=== PATIENT | female | born 2000 | race Caucasian/White ===

== ENCOUNTER 2020-11-19 12:27 | Emergency (ER) | payer OTHER, SELFPAY ==
[2020-11-19 12:37] VITALS: BP 138/83; PULSE 77; RESP 12; TEMP 36.8; O2SAT 100
--- NOTE | 2020-11-19 12:56 | ED.SKABFB ---
HPI - Skin/Abscess/Foreign Bdy General Chief complaint: Skin/Abscess/Foreign Body Stated complaint: RASH Time Seen by Provider: 11/19/20 12:50 Source: patient and RN notes reviewed Mode of arrival: ambulatory Limitations: no limitations History of Present Illness HPI narrative: 20-year-old female presents concern for a slightly painful rash to the left genital/buttock area. Reports feeling a sensation of possible ingrown hair several days ago, she played a round of beach volleyball and said the friction made the area worse. She denies itching, reports slight pain. She denies any other rash area. She denies any known herpes infection, sexually transmitted disease. Denies any known exposure to STDs. She denies abnormal vaginal discharge. Reports she recently got an IUD which has caused her to have frequent yeast and bacterial vaginosis infections. She denies any current vaginal itching, foul odor. MD complaint: rash Related Data Home Medications Medication Instructions Recorded Confirmed budesonide-formoterol [Symbicort] 2 puff INHALATION BID 11/19/20 11/19/20 fexofenadine [Mercedes] 180 mg PO DAILY 11/19/20 11/19/20 fluticasone propionate [Flonase] 1 spray INTRANASAL DAILY 11/19/20 11/19/20 sertraline 100 mg PO DAILY 11/19/20 11/19/20 Allergies Allergy/AdvReac Type Severity Reaction Status Date / Time No Known Allergies Allergy Verified 11/19/20 12:38 Review of Systems Review of Systems: CONSTITUTIONAL: Denies malaise, chills, sweats, or fever. ENT: Denies oral lesions GENITOURINARY: Denies vaginal discharge, odor, abnormal bleeding, dysuria or hematuria. SKIN: Reports painful rash in the left buttock/vaginal area MUSCULOSKELETAL: Denies myalgia. All systems reviewed & are unremarkable except as noted in HPI and below PMFSH Comments At time of signature, agree with nursing past medical, surgical, social and family history. There is no relevant family history pertinent to the presenting complaint Exam Narrative: GENERAL: Well-appearing, well-nourished, and in no acute distress. HEAD: Normocephalic, atraumatic. EYES: PERRLA, conjunctivae clear, and EOMI. ENT: Mucous membranes moist. Oropharynx without edema, erythema or lesions. NECK: Supple. No lymphadenopathy CHEST: Clear to auscultation. No respiratory distress. HEART: Regular rate and rhythm. SKIN: Warm, dry. 2 cm in diameter herpetiform rash noted to the left lower buttock/labial area NEURO: Alert and oriented x3. PSYCH: Normal mood and affect Course Course Emergency Course: Discussed possible herpes infection with patient. Discussed sending viral culture and treating for presumptive herpes while waiting for the result. Patient is aware of diagnosis, understands and agrees to treatment plan. Anticipatory guidance given. Patient agrees to follow-up as directed and is aware of reasons to seek care at the emergency department. Portions of this record may have been created with voice recognition software Vital Signs Vital signs: Vital Signs Temperature 98.2 F 11/19/20 12:37 Pulse Rate 77 11/19/20 12:37 Respiratory Rate 12 11/19/20 12:37 Blood Pressure 138/83 11/19/20 12:37 Pulse Oximetry 100 11/19/20 12:37 Temperature 98.2 F 11/19/20 12:37 Pulse Rate 77 11/19/20 12:37 Respiratory Rate 12 11/19/20 12:37 Blood Pressure 138/83 11/19/20 12:37 Pulse Oximetry 100 11/19/20 12:37 Reviewed. MDM - Skin/Abscess/Foreign Bdy MDM Narrative Medical decision making narrative: Exam findings show no acute concerns or changes; patient is non-toxic appearing and is in no distress. Patient is appropriate for outpatient treatment and follow-up. Differential Diagnosis Differential diagnosis: Likely abscess of skin or subcutaneous tissue, cellulitis, eczema, impetigo, contact dermatitis and other (Viral rash) Critical Care Time Critical Care Time Critical Care Time: No Discharge Plan Discharge Clinical Impression: Lesion of ge
== END 2020-11-19 13:13 | disposition home or self-care (01) ==
PROVIDERS: Emergency Provider Nurse Practitioner
DX: L98.9 Disorder of the skin and subcutaneous tissue, unspecified (principal)
CPT/HCPCS: 87255; 99213; G0463

== ENCOUNTER 2021-02-03 12:24 | Emergency (ER) | payer OTHER, SELFPAY ==
[2021-02-03 12:33] VITALS: BP 130/72; PULSE 75; RESP 16; TEMP 36.9; O2SAT 99
--- NOTE | 2021-02-03 12:42 | ED.FEMALEGU ---
HPI - Female Genitourinary General Chief complaint: Urogenital-Female Stated complaint: uti symptoms Time Seen by Provider: 02/03/21 12:36 Source: patient and RN notes reviewed Mode of arrival: ambulatory Limitations: no limitations History of Present Illness HPI Narrative: 20-year-old female presents concern for urinary tract infection. She reports dysuria, urgency, frequency, lower back discomfort for 4 to 5 days. Reports history of urinary tract infections. She denies nausea, vomiting, abdominal pain, fever. Denies abnormal vaginal bleeding. MD elicited complaint: UTI Related Data Home Medications Medication Instructions Recorded Confirmed budesonide-formoterol [Symbicort] 2 puff INHALATION BID 11/19/20 02/03/21 fexofenadine [Mercedes] 180 mg PO DAILY 11/19/20 02/03/21 fluticasone propionate [Flonase] 1 spray INTRANASAL DAILY 11/19/20 02/03/21 sertraline 100 mg PO DAILY 11/19/20 02/03/21 Allergies Allergy/AdvReac Type Severity Reaction Status Date / Time No Known Allergies Allergy Verified 02/03/21 12:31 Review of Systems Review of Systems: CONSTITUTIONAL: Denies malaise, chills, sweats, or fever. GASTROINTESTINAL: Denies abdominal pain, nausea, vomiting, diarrhea, bloody, or mucous stools. GENITOURINARY: Reports dysuria, frequency, urgency. Denies hematuria. MUSCULOSKELETAL: Reports mild low back pain. Denies myalgia. All systems reviewed & are unremarkable except as noted in HPI and below PMFSH Comments At time of signature, agree with nursing past medical, surgical, social and family history. There is no relevant family history pertinent to the presenting complaint Exam Narrative: GENERAL: Well-appearing, well-nourished, and in no acute distress. HEAD: Normocephalic. EYES: PERRLA, conjunctivae clear. NECK: Supple. No lymphadenopathy CHEST: Clear to auscultation. No respiratory distress. HEART: Regular rate and rhythm. ABDOMEN: Soft, nontender upon palpation, nondistended, normal active bowel sounds, no palpable or pulsatile masses, no guarding. No CVA tenderness SKIN: Warm, dry, no rash. NEURO: Alert and oriented x3. PSYCH: Normal mood and affect Course Course Emergency Course: Discussed with patient negative urinalysis, discussed culture urine, waiting to start antibiotic for culture results versus starting antibiotic now. Patient reports she would like to start the antibiotic now because her symptoms are causing her trouble sleeping. Patient instructed to follow-up with urine culture results on Monday. Patient is aware of diagnosis, understands and agrees to treatment plan. Anticipatory guidance given. Patient agrees to follow-up as directed and is aware of reasons to seek care at the emergency department. Portions of this record may have been created with voice recognition software Vital Signs Vital signs: Vital Signs Temperature 98.5 F 02/03/21 12:33 Pulse Rate 75 02/03/21 12:33 Respiratory Rate 16 02/03/21 12:33 Blood Pressure 130/72 02/03/21 12:33 Pulse Oximetry 99 02/03/21 12:33 Temperature 98.5 F 02/03/21 12:33 Pulse Rate 75 02/03/21 12:33 Respiratory Rate 16 02/03/21 12:33 Blood Pressure 130/72 02/03/21 12:33 Pulse Oximetry 99 02/03/21 12:33 Reviewed. MDM - Female Genitourinary MDM Narrative Medical decision making narrative: Exam findings and UA show no acute concerns or changes; patient is non-toxic appearing and is in no distress. Patient is appropriate for outpatient treatment and follow-up. Critical Care Time Critical Care Time Critical Care Time: No Discharge Plan Discharge Clinical Impression: Symptoms of urinary tract infection Patient Disposition: Home, Self-Care Condition: Stable Instructions: Antibiotic Form, Urinary Tract Infection in Women (ED) Additional Instructions: We will send a urine culture to the lab; if the culture identifies an organism that the prescribed antibiotic will not treat, you will receive a
== END 2021-02-03 12:56 | disposition home or self-care (01) ==
PROVIDERS: Emergency Provider Nurse Practitioner
DX: R30.0 Dysuria (principal); R39.15 Urgency of urination; R35.0 Frequency of micturition; M54.50 Low back pain, unspecified
CPT/HCPCS: 81003; 87077; 87086; 87088; 87186; 99213; G0463